=== PATIENT | male | born 1995 | race African-American/Black ===

== ENCOUNTER 2021-10-08 01:44 | Emergency (ER) | payer OTHER ==
[~2021-10-08] VITALS: Ht 182.9 cm; Wt 77.1 kg
[2021-10-08 02:28] VITALS: BP 170/100
[2021-10-08] MEDS ORDERED: IBUPROFEN 400 MG TABLET ONE (02:43)
[2021-10-08] MEDS ORDERED: IBUPROFEN 400 MG TABLET PO ONE (03:00)
== END 2021-10-08 03:33 | disposition home or self-care (01) ==
LOC: ER 01:46
DX: S43.491A Other sprain of right shoulder joint, initial encounter (principal); M54.6 Pain in thoracic spine; J45.909 Unspecified asthma, uncomplicated; Z60.2 Problems related to living alone; V49.49XA Driver injured in collision with other motor vehicles in traffic accident, initial encounter; Y93.89 Activity, other specified; Y92.413 State road as the place of occurrence of the external cause; Y99.8 Other external cause status
CPT/HCPCS: 72074-TC; 73030-TC